=== PATIENT | male | born 1945 | race Caucasian/White ===

== ENCOUNTER 2017-09-11 20:25 | Emergency (ER) | payer OTHER ==
[~2017-09-11] VITALS: Ht 160 cm; Wt 49.9 kg
[2017-09-11 20:43] VITALS: Ht 160 cm; Wt 49.9 kg
[2017-09-12 00:51] VITALS: BP 127/90
== END 2017-09-12 00:51 | disposition home or self-care (01) ==
LOC: ED 20:25
DX: S92.511A Displaced fracture of proximal phalanx of right lesser toe(s), initial encounter for closed fracture (principal); L03.031 Cellulitis of right toe; W22.8XXA Striking against or struck by other objects, initial encounter; Y93.89 Activity, other specified; Y92.89 Other specified places as the place of occurrence of the external cause; Y99.8 Other external cause status
CPT/HCPCS: 90715

== ENCOUNTER 2018-05-07 18:24 | Emergency (ER) | payer OTHER ==
[~2018-05-07] VITALS: Ht 157.5 cm; Wt 48.5 kg
[2018-05-07 18:30] VITALS: Ht 157.5 cm; Wt 48.5 kg
[2018-05-07 21:13] VITALS: BP 135/82
== END 2018-05-07 21:13 | disposition home or self-care (01) ==
LOC: ED 18:24
DX: S22.31XA Fracture of one rib, right side, initial encounter for closed fracture (principal); E78.00 Pure hypercholesterolemia, unspecified; I70.90 Unspecified atherosclerosis; M19.90 Unspecified osteoarthritis, unspecified site; W22.8XXA Striking against or struck by other objects, initial encounter; Y93.89 Activity, other specified; Y92.89 Other specified places as the place of occurrence of the external cause; Y99.8 Other external cause status
CPT/HCPCS: 94150